=== PATIENT | female | born 1990 | race Caucasian/White ===

== ENCOUNTER → 2017-04-07 | Outpatient (CLI) | payer BC | END | disposition home or self-care (01) | LOC: C.PAPS 10:13 | PROVIDERS: ATTEND Physician Assistant | DX: Z01.419 Encounter for gynecological examination (general) (routine) without abnormal findings (principal); R87.610 Atypical squamous cells of undetermined significance on cytologic smear of cervix (ASC-US); Z11.51 Encounter for screening for human papillomavirus (HPV) ==

== ENCOUNTER → 2017-04-07 | Outpatient (CLI) | payer BC ==
[2017-04-07 14:59] LABS: PREG INTERNAL NEGATIVE QC NEG CLEAR BACKGROUND; PREG INTERNAL POSITIVE QC POS CONTROL LINE
[2017-04-10 00:34] LABS: CHLAMYDIA TRACH RNA*** NOT DETECTED (NOT DETECTED); GC (NEIS GONORRHOEAE)RNA** NOT DETECTED (NOT DETECTED)
== END | disposition home or self-care (01) ==
LOC: C.LAB1850 13:06
PROVIDERS: ATTEND Physician Assistant
DX: Z01.419 Encounter for gynecological examination (general) (routine) without abnormal findings (principal); N91.2 Amenorrhea, unspecified

== ENCOUNTER 2019-12-29 07:45 | Inpatient (IN) ==
[2019-12-29] MEDS ORDERED: OXYTOCIN 30 UNITS/500 ML BAG IV PRN ×3 (08:31→18:32)
[2019-12-29] MEDS: LACTATED RINGER'S 1,000 ML IV PRN ×2 (08:45→13:11)
--- NOTE | 2019-12-29 08:45 | History & Physical Report ---
Date of Service December 29, 2019 Assessment & Plan (1) Encounter for induction of labor: (2) Diet controlled gestational diabetes mellitus (GDM), antepartum: (3) Obesity affecting , antepartum: admit, labs, iv, plan pitocin induction. fhts categ 1. pt agreeable. bsg now and then q2hr in active labor. Admission and Anticipated Discharge Date Admission Date: December 29, 2019 History of Present Illness Chief Complaint: planned induction Primary Care Provider: Abigail العلي, 29yo at 40+wks ega presents to L&D for planned induction. Has h/o GDM diet controlled, although last ac% was >75% but insulin was not started. She is sending glucoses to endo and they made decision to not add insulin based on these values. Denies rom, vb. +FM. No ctx. PNC c/b 1. 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 Diet controlled gestational diabetes mellitus (GDM), antepartum Obesity affecting , antepartum Allergies Allergy/AdvReac Type Severity Reaction Status Date / Time cefaclor [From [facility]] Allergy rash Verified 12/28/19 13:30 Home Medications Home Medications Medication Instructions Recorded Confirmed Type prenat.vits,aurelia,cgv-illr-czaqd PO 07/14/19 12/28/19 History acetone (urine) test #50 ea 08/13/19 12/28/19 Rx blood sugar diagnostic #120 ea 08/13/19 12/28/19 Rx lancets 33 gauge #120 ea 08/13/19 12/28/19 Rx Patient History Family History (Updated 07/01/19 @ 10:17 by Dorcas Younger) Father Diabetes Hypertension Dyslipidemia Mother Hypertension Dyslipidemia Liver disease Breast cancer Sister Thyroid disease Social History (Updated 07/01/19 @ 10:19 by Dorcas Younger) Preferred Language: Macedonian Communication Ability: Effective Beliefs That Will Affect Care: None marital status: Single marital status details: Sheldon Medrano (24) [phone] Current Living Situation: Significant Other Current Living Situation Comment: lives with FOB, 4 dogs, turtles current occupational status: employed 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 @ [employer] Other Information That Helps Us Care for You: No Feels Safe at Home: Yes Safety Concerns: Feels Safe At This Time Smoking Status: Former smoker Hx Alcohol Use: No Hx Substance Use: No Review of Systems as per Subjective / HPI no change in stools no dysuria and no abnormal vaginal bleeding Physical Exam Constitutional: WD/WN, vitals as above Respiratory: normal respiratory effort, lungs clear to auscultation Cardiovascular: Rate/Rhythm: regular rate and regular rhythm Gastrointestinal (Abdomen): Percussion/Palpation: abdomen soft (gravid); abdomen nontender Musculoskeletal: no edema. Neurologic: grossly normal Psychiatric: A+Ox3, euthymic affect Genitourinary: OB Exam Abdomen: + estimated weight (8-9#) Manual OB Exam: + cervical dilation (3), + cervical effacement 80% and + station -2 OB Exam Monitor Tracing: + external FHT monitor used (150 mod variability, reactive), + external uterine monitor used (no ctx), + category I and + normal FHT variability Results & Data ([facility]) Vital Signs (Past 12 Hours) Vital Signs Temp Pulse Resp BP 12/29/19 07:55 98.8 F 20 12/29/19 07:54 71 139/83 Coding Level of Care Code None Diagnoses Encounter for induction of labor Z34.90 Diet controlled gestational diabetes mellitus (GDM), antepartum O24.410 Obesity affecting , antepartum O99.210
[2019-12-29 08:54] LABS: Hematocrit (blood only) 41.2 % (37-47); Hemoglobin 13.5 g/dL (12.0-16.0); Mean Corpuscular Hemoglobin 28.7 pg (25-34); Mean Corpuscular Volume 87.5 fL (80-100); Mean Platelet Volume 12.6 fL (7.4-10.4); Platelet Count 182 K/uL (130-400); RDW Coefficient of Variation 14.6 % (11.5-14.5); RDW Standard Deviation 46.5 fL (36.4-46.3); Red Blood Count 4.71 M/uL (4.2-5.4)
[2019-12-29 09:02] LABS: Mean Corpuscular Hgb Conc 32.8 g/dL (32-36)
[2019-12-29] MEDS ORDERED: fentaNYL 2MCG/ML ROPIV 1.25MG/ML 100 ML BAG EPI ONE (12:50)
[2019-12-29] MEDS ORDERED: BUPIVACAINE 0.25% 30 ML VIAL ONE (12:50)
[2019-12-29] MEDS ORDERED: fentaNYL citrate 100 MCG/2 ML VIAL ONE (12:50)
[2019-12-29] MEDS ORDERED: ePHEDrine sulfate 50 MG/ML AMP ONE (12:50)
[2019-12-29] MEDS ORDERED: NALOXONE HCL 1 MG in SODIUM CHLORIDE 0.9% 1000ML 1,000 ML IV PRN (13:05)
[2019-12-29] MEDS ORDERED: DiphenhydrAMINE HCL 50 MG/ML VIAL IV PRN (13:05)
[2019-12-29] MEDS ORDERED: NALBUPHINE HCL INJ 10 MG/ML AMP IV PRN (13:05)
[2019-12-29] MEDS ORDERED: ePHEDrine sulfate 50 MG/ML AMP IV PRN (13:05)
[2019-12-29] MEDS ORDERED: ONDANSETRON INJ 2 MG/ML 2 ML VIAL IV PRN (13:05)
[2019-12-29] MEDS ORDERED: NALOXONE HCL 0.4 MG/1 ML VIAL/CARP IV PRN (13:05)
[2019-12-29] MEDS ORDERED: fentaNYL 2MCG/ML ROPIV 1.25MG/ML 100 ML BAG EPI PRN (13:05)
--- NOTE | 2019-12-29 13:12 | Anesthesiology Consultation ---
Date of Service December 29, 2019 Assessment & Plan Chart Review Chart Review: Patient NOT seen in Pre Admission Testing and Acceptable Risk for Labor Epidural Consults Requested none ASA ASA2 Proposed Anesthesia Anesthesia Type: Labor Epidural and CSE Risk / Benefits Reviewed With: PT / POA / Parent / Guardian, Accepts Plan and Informed Consent Obtained History Height/Weight Height: 5 ft 8 in Weight: 113.398 kg Allergies Allergy/AdvReac Type Severity Reaction Status Date / Time cefaclor [From [facility]] Allergy Mild rash Verified 12/29/19 09:14 Medications Home Medications Medication Instructions Recorded Confirmed Last Taken vit-iron fum-folic ac 1 tab PO DAILY 12/29/19 12/29/19 12/29/19 06:00 [ Vitamin] Active Medications Generic Name Dose Route Start Last Admin Trade Name Freq PRN Reason Stop Dose Admin Lactated Ringer's 1,000 mls @ 125 mls/hr 12/29/19 08:31 12/29/19 12:40 Lr IV 12/31/19 08:30 999 mls/hr .Q8H PRN Infusion L&D Protocol Protocol Oxytocin 30 units in 500 mls @ 5 mls/hr 12/29/19 08:31 12/29/19 10:45 Pitocin IV 12/31/19 08:30 0.3 units/hr .Q24H PRN 5 mls/hr Labor Induction/Augmentation Titration Protocol 0.3 UNITS/HR NPO Date Last Intake of Fluids: 12/29/19 Time Last Intake of Fluids: 12:00 Date Last Intake of Solids: 12/29/19 Time Last Intake of Solids: 06:30 Past Medical History Medical History ASCUS of cervix with negative high risk HPV Encounter for anatomic survey History of hysterosalpingogram LGSIL on Pap smear of cervix PCOS (polycystic ovarian syndrome) Varicella vaccination Exercise / Class Metabolic Activity II 4-5 Yardwork/Stairs/Walk up hill Past Family History Family History Father Diabetes Hypertension Dyslipidemia Mother Hypertension Dyslipidemia Liver disease Breast cancer Sister Thyroid disease Past Surgical History Surgical History H/O sinus surgery History of cholecystectomy History of tonsillectomy and adenoidectomy [place] teeth removed Past Anesthesia History No Hx of Anesthesia Complications and No Family Hx of Anesthesia Complications History of PONV No Hx of PONV and No Hx of Motion Sickness Social History Smoking Status: Former smoker Hx Alcohol Use: No Hx Substance Use: No substance use type: does not use Review of Systems no chest pain or sob Physical Exam Vital Signs Last Vital Signs Temp 37.1 C 12/29/19 11:14 Pulse 67 12/29/19 13:04 Resp 18 12/29/19 11:14 BP 145/87 H 12/29/19 12:11 Pulse Ox 99 12/29/19 13:04 ENMT Mouth: no TMJ abnormality Thyromental Distance: > or= 3.5 Finger Breadths Mallampati Class: II Neck normal visual inspection Respiratory normal respiratory effort Auscultation: lungs clear to auscultation bilaterally Cardiovascular Rate/Rhythm: regular rate and regular rhythm Musculoskeletal Spine: normal cervical ROM Neurologic moves all extremities Psychiatric Orientation: alert and oriented x 3 Testing Laboratory Results 12/29/19 08:42 12/29/19 09:08 POC Glucose 79
--- NOTE | 2019-12-29 14:15 | Labor Progress Brief Note ---
Date of Service December 29, 2019 Subjective comfortable with epidural Assessment & Plan (1) Diet controlled gestational diabetes mellitus (GDM), antepartum: (2) Encounter for induction of labor: c/w pitocin to keep ctx regular and palpably mod to strong. reeval cx in about 2hr. fhts categ 1. Admission and Anticipated Discharge Date Admission Date: December 29, 2019 Physical Exam Constitutional: WD/WN, vitals as above Neurologic: grossly normal Psychiatric: A+Ox3, euthymic affect Genitourinary: Manual OB Exam: + cervical dilation 6 cm, + cervical effacement 100% and + station -1 OB Exam Monitor Tracing: + external FHT monitor used (120 mod variability ), + external uterine monitor used (q2), + category I and + normal FHT variability Results & Data ([facility]) Vital Signs (Past 12 Hours) Vital Signs Temp Pulse Resp BP Pulse Ox 12/29/19 14:09 66 121/67 99 12/29/19 14:04 63 114/60 97 12/29/19 14:01 62 119/58 L 12/29/19 13:59 74 98 12/29/19 13:54 62 108/50 L 97 12/29/19 13:50 68 116/56 L 12/29/19 13:49 70 97 12/29/19 13:46 67 109/55 L 12/29/19 13:44 71 96 12/29/19 13:39 70 121/58 L 97 12/29/19 13:36 75 113/61 12/29/19 13:34 72 115/57 L 97 12/29/19 13:33 75 118/72 12/29/19 13:30 95 H 121/60 12/29/19 13:29 86 98 12/29/19 13:28 79 112/56 L 12/29/19 13:27 75 112/57 L 12/29/19 13:25 96 H 129/79 12/29/19 13:24 96 H 99 12/29/19 13:23 76 127/78 12/29/19 13:21 71 138/84 12/29/19 13:19 72 98 12/29/19 13:14 81 99 12/29/19 13:09 84 99 12/29/19 13:04 67 99 12/29/19 12:59 69 100 12/29/19 12:54 67 99 06/24/20 12:49 67 99 12/29/19 12:11 73 145/87 H 12/29/19 11:14 98.8 F 76 18 130/83 12/29/19 10:07 75 18 134/87 12/29/19 08:56 73 133/75 12/29/19 07:55 98.8 F 20 12/29/19 07:54 71 139/83 Coding Level of Care Code None Diagnoses Diet controlled gestational diabetes mellitus (GDM), antepartum O24.410 Encounter for induction of labor Z34.90
--- NOTE | 2019-12-29 16:51 | Labor Progress Brief Note ---
Date of Service December 29, 2019 Subjective Reason For Note: Routine Evaluation feels pressure sometimes. Assessment & Plan (1) Diet controlled gestational diabetes mellitus (GDM), antepartum: (2) Encounter for induction of labor: will start 2nd stage, fhts categ 2 Admission and Anticipated Discharge Date Admission Date: December 29, 2019 Physical Exam Constitutional: WD/WN, vitals as above Psychiatric: A+Ox3, euthymic affect Genitourinary: Manual OB Exam: + cervical dilation 10 cm, + cervical effacement 100% and + station + 2 OB Exam Monitor Tracing: + external FHT monitor used (130 mod variability), + external uterine monitor used (q2), + category II, + normal FHT variability and + variable decelerations Results & Data ([facility]) Vital Signs (Past 12 Hours) Vital Signs Temp Pulse Resp BP Pulse Ox 12/29/19 16:44 67 118/68 99 12/29/19 16:39 65 98 12/29/19 16:34 66 99 12/29/19 16:29 65 100 12/29/19 16:28 67 125/63 12/29/19 16:24 63 99 12/29/19 16:20 18 12/29/19 16:19 62 97 12/29/19 16:14 63 98 12/29/19 16:13 68 113/59 L 12/29/19 16:09 79 97 12/29/19 16:04 68 99 12/29/19 16:00 18 12/29/19 15:59 68 98 12/29/19 15:58 63 121/60 12/29/19 15:54 80 98 12/29/19 15:49 62 99 12/29/19 15:44 71 99 12/29/19 15:42 70 130/63 12/29/19 15:39 75 99 12/29/19 15:34 67 98 12/29/19 15:30 18 12/29/19 15:29 61 99 12/29/19 15:28 68 131/63 12/29/19 15:24 64 99 12/29/19 15:19 68 99 12/29/19 15:14 70 123/60 99 12/29/19 15:10 98.2 F 18 12/29/19 15:09 65 98 12/29/19 15:04 68 99 12/29/19 14:59 67 18 100 06/24/20 14:58 69 141/70 H 12/29/19 14:54 64 98 12/29/19 14:49 61 99 12/29/19 14:44 64 18 100 12/29/19 14:40 69 134/67 12/29/19 14:39 67 99 12/29/19 14:35 95 H 94 12/29/19 14:34 65 105/59 L 96 12/29/19 14:31 61 20 111/68 12/29/19 14:29 60 97 12/29/19 14:25 60 112/63 12/29/19 14:24 60 96 12/29/19 14:19 67 112/64 97 12/29/19 14:16 69 18 115/69 12/29/19 14:14 69 98 12/29/19 14:09 66 121/67 99 12/29/19 14:04 63 114/60 97 12/29/19 14:01 62 18 119/58 L 12/29/19 13:59 74 98 12/29/19 13:54 62 108/50 L 97 12/29/19 13:50 68 116/56 L 12/29/19 13:49 70 97 12/29/19 13:46 67 109/55 L 12/29/19 13:44 98.8 F 71 18 96 12/29/19 13:39 70 18 121/58 L 97 12/29/19 13:36 75 113/61 12/29/19 13:34 72 18 115/57 L 97 12/29/19 13:33 75 118/72 12/29/19 13:30 95 H 121/60 12/29/19 13:29 86 98 12/29/19 13:28 79 112/56 L 12/29/19 13:27 75 112/57 L 12/29/19 13:25 96 H 129/79 12/29/19 13:24 96 H 99 12/29/19 13:23 76 127/78 12/29/19 13:21 71 138/84 12/29/19 13:19 72 98 12/29/19 13:14 81 99 12/29/19 13:09 84 99 12/29/19 13:04 67 99 12/29/19 12:59 69 100 12/29/19 12:54 67 99 12/29/19 12:49 67 99 12/29/19 12:11 73 145/87 H 12/29/19 11:14 98.8 F 76 18 130/83 12/29/19 10:07 75 18 134/87 12/29/19 08:56 73 133/75 12/29/19 07:55 98.8 F 20 12/29/19 07:54 71 139/83 Coding Level of Care Code None Diagnoses Diet controlled gestational diabetes mellitus (GDM), antepartum O24.410 Encounter for induction of labor Z34.90
[2019-12-29] MEDS ORDERED: HYDROCORTISONE ACETATE 25 MG SUPP PR PRN (18:32)
[2019-12-29] MEDS ORDERED: BENZOCAINE 20% AER SPR 82.5 GM CAN EXT PRN (18:32)
[2019-12-29] MEDS ORDERED: ACETAMINOPHEN 325 MG TAB PO PRN (18:32)
[2019-12-29] MEDS ORDERED: SUPERCREAM 0.870% 15 GM JAR EXT PRN (18:32)
[2019-12-29] MEDS ORDERED: DIPHTHERIA/TETANUS/PERTUSSIS 0.5 ML SYR/VIAL IM ONE (18:32)
[2019-12-29] MEDS ORDERED: OXYCODONE/ACETAMINOPHEN 5mg/325mg TAB PO PRN (18:32)
--- NOTE | 2019-12-29 18:32 | Delivery Summary ---
Vaginal Delivery Summary Date of Service December 29, 2019 The patient dilated to complete and pushed to deliver a viable male Apgars 8 and 8 via over small 2nd degree perineal laceration from the LOP position. Meconium stained fluid noted, not previously noted. Mouth and nose bulb suctioned at perineum. Shoulders and body delivered with ease. was vigorous and crying at . Cord clamped and to maternal abdomen where the cord was then doubly clamped and cut. Placenta delivered spontaneously and intact, three-vessel cord. Hemostasis achieved with dilute pitocin and uterine massage. Cervix and sulci intact. Laceration repaired in usual fashion with 3- 0 vicryl. EBL 300 cc. Mother and baby stable recovery. [facility] Vaginal Delivery Charge Vaginal Delivery Codes: 48738 global code for the antepartum, delivery, and post-
[2019-12-29] MEDS ORDERED: OXYTOCIN 20 UNITS in LACTATED RINGER'S 1,000 ML IV SCH (19:00)
--- NOTE | 2019-12-29 19:27 | Anesthesia Procedure Note ---
Date of Service December 29, 2019 Anesthesia Post Epidural Note Vital Signs Vital Signs: Temp Pulse Resp BP Pulse Ox 37.5 C 92 H 18 135/80 90 12/29/19 18:57 12/29/19 19:12 12/29/19 19:12 12/29/19 19:12 12/29/19 18:27 Pain Intensity Left Lower Abdomen: Pain Intensity: 0 Notes Mental Status: alert / awake / arousable and participated in evaluation Nausea / Vomiting: adequately controlled Pain: adequately controlled Airway Patency, RR, SpO2: stable & adequate BP & HR: stable & adequate Hydration State: stable & adequate Neuraxial Anesthesia: was administered and sensory block is resolving Anesthetic Complications: no major complications apparent and Pt Satisfied with anesthetic care Epidural: Removed without complications and With tip intact
[2019-12-29] MEDS: DOCUSATE SODIUM 100 MG CAP PO SCH (20:27)
[2019-12-30] MEDS: IBUPROFEN 600 MG TAB PO PRN ×2 (04:16→21:00)
--- NOTE | 2019-12-30 07:09 | Obstetrical Progress Note ---
Date of Service December 30, 2019 Assessment & Plan (1) Encounter for care and examination after delivery: 29 yo G1Po PPD1 s/p after induction at 40 weeks. 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 Salas during the history and exam. I discussed the case with the resident and agree with the findings and plan as documented in the note. Any exceptions or clarifications are listed here: Doing well pp. She was tired so had nursery give baby bottle. She will cont to try to breastfeed. Eating, voiding well. No bleeding issues. VSS. Abd soft FF 2 down. NT, Ext nt calves. Will cont routine pp care. Documented By: Malia Miguel MD, FACOG Subjective no complaints this morning. pain well controlled. Review of Systems Constitutional: no fever, no chills and no fatigue Respiratory: no cough and no dyspnea Cardiovascular: no chest pain, no syncope, no edema and no calf pain Gastrointestinal: no abdominal pain, no nausea, no vomiting, no cramping, no constipation and no diarrhea/loose stools Genitourinary: no dysuria and no difficulty urinating Neurologic: no headache(s) Physical Exam Constitutional: well developed and well nourished Respiratory: normal respiratory effort; no respiratory distress, no labored breathing and no cough Auscultation: no crackles, no rales, no rhonchi and no wheezes Cardiovascular: Rate/Rhythm: regular rate and regular rhythm Heart Sounds: no gallop, no murmur and no cardiac rub Extremities: no pedal edema Gastrointestinal (Abdomen): Inspection/Auscultation: normal bowel sounds; abdomen not distended Percussion/Palpation: abdomen soft; no guarding Musculoskeletal: no tenderness to palpation of calves bilaterally Genitourinary: palpation of uterine fundus impaired by body habitus Results & Data ([facility]) Vital Signs (Past 12 Hours) Vital Signs Temp Pulse Pulse Resp BP BP Pulse Ox 12/30/19 04:05 36.8 C 83 16 122/81 97 12/30/19 00:30 36.6 C 69 18 125/86 97 12/29/19 21:45 36.9 C 86 17 129/85 96 12/29/19 20:57 37.1 C 18 12/29/19 20:27 96 H 126/71 12/29/19 20:12 81 126/68 12/29/19 19:57 82 18 133/67 12/29/19 19:42 81 136/80 12/29/19 19:27 94 H 20 135/89 12/29/19 19:12 92 H 18 135/80 Laboratory Results WBC 15.00 K/uL (4.8-10.8) H 12/29/19 08:42 RBC 4.71 M/uL (4.2-5.4) 12/29/19 08:42 Hgb 13.5 g/dL (12.0-16.0) 12/29/19 08:42 Hct 41.2 % (37-47) 12/29/19 08:42 MCV 87.5 fL (80-100) 12/29/19 08:42 MCH 28.7 pg (25-34) 12/29/19 08:42 MCHC 32.8 g/dL (32-36) 12/29/19 08:42 RDW Std Deviation 46.5 fL (36.4-46.3) H 12/29/19 08:42 RDW Coeff of Rigoberto 14.6 % (11.5-14.5) H 12/29/19 08:42 Plt Count 182 K/uL (130-400) 12/29/19 08:42 MPV 12.6 fL (7.4-10.4) H 12/29/19 08:42 POC Glucose 82 mg/dl (70-99) 12/29/19 17:30 Resident Activity Tracking Resident Involvement: Resident Care Provided Care Provided: OB Delivery
[2019-12-30] MEDS ORDERED: CALCIUM CARBONATE 500 MG CHEWABLE TAB PO PRN (09:16)
[2019-12-30] MEDS: DOCUSATE SODIUM 100 MG CAP PO SCH ×2 (10:04→21:08)
[2019-12-31] MEDS: IBUPROFEN 600 MG TAB PO PRN (05:49)
--- NOTE | 2019-12-31 07:30 | Obstetrical Progress Note ---
Date of Service December 31, 2019 Assessment & Plan (1) Encounter for care and examination after delivery: 29 yo G1Po PPD2 s/p after induction at 40 weeks. 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 Stable for discharge Subjective no complaints this am. doing well with eating, urination, walking. Review of Systems Constitutional: + fatigue; no fever and no chills Respiratory: no cough and no dyspnea Cardiovascular: + edema; no chest pain, no syncope and no calf pain Gastrointestinal: + cramping; no abdominal pain, no nausea, no vomiting, no constipation and no diarrhea/loose stools Genitourinary: no dysuria and no difficulty urinating Neurologic: no headache(s) Physical Exam Constitutional: well developed and well nourished Respiratory: normal respiratory effort; no respiratory distress, no labored breathing and no cough Auscultation: no crackles, no rales, no rhonchi and no wheezes Cardiovascular: Rate/Rhythm: regular rate and regular rhythm Heart Sounds: no gallop, no murmur and no cardiac rub Extremities: + pedal edema Gastrointestinal (Abdomen): Inspection/Auscultation: normal bowel sounds; abdomen not distended Percussion/Palpation: abdomen soft; no guarding Musculoskeletal: no tenderness to palpation of calves bilaterally Genitourinary: Uterus small and firm, palpable in midline at level of umbilicus, some tenderness to palpation. Results & Data ([facility]) Vital Signs (Past 12 Hours) Vital Signs Temp Pulse Resp BP Pulse Ox 12/31/19 00:15 36.7 C 82 18 127/83 100 12/30/19 20:45 36.8 C 72 20 112/76 99 Laboratory Results WBC 15.00 K/uL (4.8-10.8) H 12/29/19 08:42 RBC 4.71 M/uL (4.2-5.4) 12/29/19 08:42 Hgb 13.5 g/dL (12.0-16.0) 12/29/19 08:42 Hct 41.2 % (37-47) 12/29/19 08:42 MCV 87.5 fL (80-100) 12/29/19 08:42 MCH 28.7 pg (25-34) 12/29/19 08:42 MCHC 32.8 g/dL (32-36) 12/29/19 08:42 RDW Std Deviation 46.5 fL (36.4-46.3) H 12/29/19 08:42 RDW Coeff of Rigoberto 14.6 % (11.5-14.5) H 12/29/19 08:42 Plt Count 182 K/uL (130-400) 12/29/19 08:42 MPV 12.6 fL (7.4-10.4) H 12/29/19 08:42 POC Glucose 82 mg/dl (70-99) 12/29/19 17:30 Resident Activity Tracking Resident Involvement: Resident Care Provided Care Provided: OB Delivery
[2019-12-31] MEDS: DOCUSATE SODIUM 100 MG CAP PO SCH (08:28)
== END 2019-12-31 13:37 | disposition home or self-care (01) | DRG 807 ==
LOC: 4S1 07:45 → 4S2 20:50

== ENCOUNTER 2022-08-27 08:50 | Inpatient (IN) ==
[2022-08-27] MEDS ORDERED: OXYTOCIN 30 UNITS/500 ML BAG IV PRN (09:01)
[2022-08-27] MEDS ORDERED: LIDOCAINE 1% LOCAL 20 ML VIAL INFIL PRN (09:01)
[2022-08-27] MEDS ORDERED: LACTATED RINGER'S 1,000 ML IV PRN (09:01)
--- NOTE | 2022-08-27 09:03 | History & Physical Report ---
Date of Service August 27, 2022 Assessment & Plan (1) Diet controlled gestational diabetes mellitus (GDM), antepartum: (2) Normal labor: Plan Patient involuntarily pushing. See delivery note. History of Present Illness Chief Complaint: rom and labor Primary Care Provider: Abigail العلي DO Patient is a 32yowf with iup at 39 1/7 weeks who presents to labor and delivery with rom and contractions. Very uncomfortable. Started leaking clear fluid at 5 and contractions started at 5:30. complicated by GDm. La st us efw 81%. 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 Declines cf/sma/cfdna--mln declined afp Allergies Allergy/AdvReac Type Severity Reaction Status Date / Time cefaclor [From [facility]] Allergy Mild rash Verified 08/23/22 10:15 Home Medications Medication Instructions Recorded Confirmed Type vitamins-iron fumarate 27 1 tab PO DAILY 12/29/19 08/23/22 History mg iron-folic acid 0.8 mg tablet ( Vitamin) acetone (urine) test (Ketone Urine #50 ea 03/01/22 08/23/22 Rx Test strips) blood sugar diagnostic (OneTouch #150 ea 03/01/22 08/23/22 Rx Verio test strips) blood-glucose meter (OneTouch #1 ea 03/01/22 08/23/22 Rx Verio Flex Meter) lancets 33 gauge (OneTouch Delica #150 ea 03/01/22 08/23/22 Rx Plus Lancet) Patient History Medical History Abnormal Pap smear of cervix Amenorrhea ASCUS of cervix with negative high risk HPV Chlamydial infection Encounter for anatomic survey Encounter for routine pelvic examination Encounter for screening for infections with predominantly sexual mode of transmission History of hysterosalpingogram History of PCOS LGSIL on Pap smear of cervix PCOS (polycystic ovarian syndrome) Polycystic ovarian syndrome Secondary amenorrhea Varicella vaccination Surgical History H/O sinus surgery History of cholecystectomy History of tonsillectomy and adenoidectomy [place] teeth removed Family History Father Diabetes Hypertension Dyslipidemia Mother Hypertension Dyslipidemia Liver disease Breast cancer Sister Thyroid disease Denies family history of Ovarian cancer Prostate cancer Colorectal cancer Social History Smoking Status: Never smoker Second Hand Exposure: No; Hx Alcohol Use: No Hx Substance Use: No Preferred Language: Latvian Communication Ability: Effective Visual Impairment: No Limitations Hearing Ability: Normal Beliefs That Will Affect Care: None marital status: Single marital status details: Sheldon Medrano (27) [phone] Current Living Situation: Significant Other Current Living Situation Comment: lives with FOB, son, 5 dogs, 3 turtles current occupational status: employed 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 Date GA wks Lbr Lgth wt Sex Type del [place] Place Del Prov ? Comment 12/29/19 40 7lbs 15.7oz M E pidural [facility] Dr Miguel No GDM Physical Exam Constitutional: WD/WN, vitals as above (uncomfortable) Gastrointestinal (Abdomen): obese , gravid Psychiatric: A+Ox3, euthymic affect Genitourinary: cx--ant lip toco--q2min efm--120s with mod variability, minimal strip, difficult tracing. Results & Data ([facility]) Vital Signs (Past 12 Hours) Vital Signs Pulse BP 08/27/22 08:56 81 120/72 Coding Level of Care Code None Diagnoses Diet controlled gestational diabetes mellitus (GDM), antepartum O24.410 Normal labor O80; Z37.9
[2022-08-27] MEDS ORDERED: IBUPROFEN 600 MG TAB PO PRN (09:26)
[2022-08-27] MEDS ORDERED: HYDROCORTISONE ACETATE 25 MG SUPP PR PRN (09:26)
[2022-08-27] MEDS ORDERED: oxyCODONE/ACETAMINOPHEN 5mg/325mg TAB PO PRN (09:26)
[2022-08-27] MEDS ORDERED: ACETAMINOPHEN 325 MG TAB PO PRN (09:26)
[2022-08-27] MEDS ORDERED: BENZOCAINE 20% AER SPR 82.5 GM CAN EXT PRN (09:26)
[2022-08-27] MEDS ORDERED: miSOPROStoL 200 MCG TAB PR ONE (09:26)
[2022-08-27] MEDS ORDERED: bisacodyL 10 MG SUPP PR PRN (09:26)
[2022-08-27] MEDS ORDERED: DIPHTHERIA/TETANUS/PERTUSSIS 0.5mL SYR/VIAL (Age 7+yrs) IM ONE (09:26)
[2022-08-27] MEDS ORDERED: OXYTOCIN 10 UNITS/ML 10ML VIAL IM ONE (09:26)
--- NOTE | 2022-08-27 09:35 | Delivery Summary ---
Vaginal Delivery Summary Date of Service August 27, [address] [facility] Pre-operative Diagnosis: at 39 week srom with active labor gdm Post-operative Diagnosis: same Procedure: EBL: 400cc Anesthesia: none Procedure: Patient presented to labor and delivery in active labor. She was involuntarily pushing. Fetus +1-2 station. The patient pushed for 1-2 contractions to deliver a viable female infant in piter position. The anterior shoulder was immediately delivered and a pop was heard, but no real shoulder dystocia encountered. Just placed baby in Aravind. The body delivered easily. The nose and mouth were bulb suctioned. The baby was placed on the maternal abdomen. The baby was vigorous. Cord was clamped and cut at 1.5 minutes of life. Cord blood and segment obtained. Placenta delivered spontaneous, intact with a three vessel cord. Cervix/sulci/rectum/perineum were intact. Hemostasis obtained with IM pitocin, rectal cytotec and fundal massage. Patient was unable to have IV access obtained prior to delivery. Apgars were 8/9. Mother and baby doing well at the end of the delivery. [facility] Vaginal Delivery Charge Delivery Type Details: [facility]
[2022-08-27 10:48] LABS: Hematocrit (blood only) 42.2 % (37.0-47.0); Mean Corpuscular Hemoglobin 28.9 pg (25.0-34.0); Mean Corpuscular Hgb Conc 33.2 g/dL (32.0-36.0); Mean Platelet Volume 12.9 fL (9.4-12.4); Platelet Count 183 K/uL (130-400); RDW Coefficient of Variation 14.4 % (11.5-14.5); RDW Standard Deviation 45.2 fL (36.4-46.3); Red Blood Count 4.85 M/uL (4.20-5.40); White Blood Count 23.85 K/ul (4.8-10.8)
[2022-08-27] MEDS ORDERED: miSOPROStoL 200 MCG TAB ONE (13:14)
[2022-08-27] MEDS ORDERED: OXYTOCIN 10 UNITS/ML VIAL ONE (13:15)
[2022-08-27] MEDS: DOCUSATE SODIUM 100 MG CAP PO SCH (20:16)
--- NOTE | 2022-08-28 05:40 | Obstetrical Progress Note ---
Date of Service August 28, 2022 Assessment & Plan (1) care following vaginal delivery: (2) Diet controlled gestational diabetes mellitus (GDM), antepartum: Plan - Overall, feeling well and eating well today - feeding going well without concern - Urinating and passing gas appropriately - Ambulating well in room - Pain controlled w/ Ibuprofen - Hgb 14.0 on 08/27 - Vitals stable and wnl - Routine PP care progressing well - Anticipate discharge @ 24-48 hours PP - Recommending f/u outpatient in 6 weeks Admission and Anticipated Discharge Date Admission Date: August 27, 2022 Supervising Physician Co-Signing Physician Notes Resident Physician Supervision Note: I interviewed and examined the patient. Discussed with Dr. Milian and agree with findings and plan as documented in the note. Any exceptions or clarifications are listed here: Patient doing well. Desires d/c at 24 hours. Instructions given. Documented By: Mary Light MD, FACOG Subjective Patient is a 32F who is PPD #1 following delivery at 39 1/7. She reports feeling well overall this morning. - Ambulation - well throughout room - Voiding/Syed - independent voids, no dysuria or pressure - Gas/Stool - passing gas, no bowel movement - Diet - regular, no nausea or emesis - Lochia - diminishing, moderate amount - Feeding Type - breast/bottle feeding - Pain Level - 0/10, controlled with Ibuprofen Review of Systems - Denies fever, chills, sweats - Denies shortness of breath, difficulty breathing, chest pain, palpitations, chest pressure. - Denies breast pain. - Denies dysuria. - Denies headache or changes in vision. Physical Exam Physical Exam: General: Alert, oriented. No acute distress. Cardiac: RRR, normal S1/S2, no murmurs/rubs/gallops. Respiratory: Non-labored, CTAB, no wheezes/rales/rhonchi. Symmetric chest rise. Abdomen: Soft, nontender, nondistended. Bowel sounds present. Uterus: Uterine fundus firm, palpable 3 cm below umbilicus. Lower Extremities: No lower extremity edema or swelling. No deep calf pain. Ej's negative bilaterally. Results & Data ([facility]) Vital Signs (Past 12 Hours) Vital Signs Temp Pulse Resp BP Pulse Ox O2 Del Method 08/28/22 03:40 36.6 C 80 18 114/74 97 Room Air 08/27/22 23:50 36.6 C 97 H 18 129/81 100 Room Air 08/27/22 19:40 36.6 C 96 H 18 126/82 98 Room Air Resident Activity Tracking Resident Involvement: Resident Care Provided Care Provided: OB Delivery
[2022-08-28 06:59] LABS: Hematocrit (blood only) 38.1 % (37.0-47.0); Hemoglobin 12.7 g/dl (12.0-16.0); Mean Corpuscular Hemoglobin 28.9 pg (25.0-34.0); Mean Corpuscular Hgb Conc 33.3 g/dL (32.0-36.0); Mean Corpuscular Volume 86.8 fL (80.0-100.0); Mean Platelet Volume 12.7 fL (9.4-12.4); Platelet Count 160 K/uL (130-400); RDW Coefficient of Variation 14.6 % (11.5-14.5); RDW Standard Deviation 46.1 fL (36.4-46.3); Red Blood Count 4.39 M/uL (4.20-5.40); White Blood Count 18.24 K/ul (4.8-10.8)
[2022-08-28] MEDS ORDERED: PRENATAL VITAMIN 1 TAB PO SCH (08:00)
[2022-08-28] MEDS: DOCUSATE SODIUM 100 MG CAP PO SCH (08:22)
[2022-08-28] MEDS ORDERED: bisacodyL 5 MG TABEC PO SCH (20:00)
== END 2022-08-28 13:40 | disposition home or self-care (01) | DRG 807 ==
LOC: OPB 08:50 → 4S1 08:54 → 4E2 12:20

== ENCOUNTER 2024-09-19 04:09 | Inpatient (IN) ==
[2024-09-19] MEDS ORDERED: ONDANSETRON INJ 2 MG/ML 2 ML VIAL IV PRN (04:49)
[2024-09-19] MEDS ORDERED: ROPIVACAINE 0.5% PF 5 MG/ML 20 ML VIAL EPI PRN (04:49)
[2024-09-19] MEDS ORDERED: fentANYL 2 MCG/ML BUPIVacaine 0.125%-NSS 100ML BAG EPI PRN (04:49)
[2024-09-19] MEDS ORDERED: SODIUM CHLORIDE 0.9% PF INJ 10 ML VIAL EPI PRN (04:49)
[2024-09-19] MEDS ORDERED: NALOXONE HCL 1 MG in SODIUM CHLORIDE 0.9% 1,000 ML IV PRN (04:49)
[2024-09-19] MEDS ORDERED: LIDOCAINE 2% MPF LOCAL 5 ML VIAL EPI PRN (04:49)
[2024-09-19] MEDS ORDERED: diphenhydrAMINE 50 MG/ML VIAL IV PRN (04:49)
[2024-09-19] MEDS ORDERED: NALBUPHINE HCL INJ 10 MG/ML AMP IV PRN (04:49)
[2024-09-19] MEDS ORDERED: ePHEDrine sulfate 50 MG/ML AMP IV PRN (04:49)
[2024-09-19] MEDS ORDERED: NALOXONE HCL 0.4 MG/1 ML VIAL/CARP IV PRN (04:49)
[2024-09-19] MEDS ORDERED: fentaNYL citrate PF 100 MCG/2 ML VIAL EPI PRN (04:49)
[2024-09-19] MEDS ORDERED: BUPIVACAINE 0.25% PF 30 ML VIAL EPI PRN (04:49)
[2024-09-19] MEDS ORDERED: LACTATED RINGER'S 1,000 ML IV PRN (04:51)
[2024-09-19] MEDS ORDERED: LIDOCAINE 1% LOCAL 20 ML VIAL INFIL PRN (04:51)
--- NOTE | 2024-09-19 04:51 | Anesthesiology Consultation ---
Date of Service September 19, 2024 Assessment & Plan ASA ASA3 Proposed Anesthesia Anesthesia Type: Labor Epidural Risk / Benefits Reviewed With: PT / POA / Parent / Guardian, Accepts Plan and Informed Consent Obtained History Height/Weight Height: 5 ft 8 in Weight: 127.006 kg Allergies Allergy/AdvReac Type Severity Reaction Status Date / Time cefaclor [From Ceclor] Allergy Mild rash Verified 09/19/24 04:42 Medications Home Medications Medication Instructions Recorded Confirmed Last Taken vitamins-iron fumarate 27 1 tab PO DAILY 12/29/19 09/14/24 09/19/24 mg iron-folic acid 0.8 mg tablet ( Vitamin) omeprazole PO 03/12/24 09/14/24 Unknown acetone (urine) test (Ketone Urine #50 ea 03/26/24 09/14/24 Unknown Test strips) blood sugar diagnostic (OneTouch #120 ea 03/26/24 09/14/24 Unknown Verio test strips) blood-glucose meter (OneTouch #1 ea 03/26/24 09/14/24 Unknown Verio Reflect Meter) lancets 33 gauge (OneTouch Delica #120 ea 03/26/24 09/14/24 Unknown Plus Lancet) insulin NPH isoph U-100 human 100 8 unit (0.08 mL) subcut .at bed 06/16/24 09/19/24 09/19/24 unit/mL (3 mL) subcutaneous pen time #15 mL (Novolin N FlexPen) pen needle, diabetic 32 gauge x #100 ea 06/16/24 09/14/24 Unknown 5/32" (BD Ultra-Fine Terri Pen Needle) Past Medical History Medical History Polycystic ovarian syndrome Secondary amenorrhea Chlamydial infection Abnormal Pap smear of cervix Varicella vaccination History of hysterosalpingogram ASCUS of cervix with negative high risk HPV LGSIL on Pap smear of cervix Exercise / Class Metabolic Activity II 4-5 Yardwork/Stairs/Walk up hill Past Family History Family History Father Diabetes Hypertension Dyslipidemia Mother Hypertension Dyslipidemia Liver disease Breast cancer Sister Thyroid disease Denies family history of Ovarian cancer Prostate cancer Colorectal cancer Past Surgical History Surgical History History of cholecystectomy [place] teeth removed H/O sinus surgery History of tonsillectomy and adenoidectomy Past Anesthesia History No Hx of Anesthesia Complications and No Family Hx of Anesthesia Complications History of PONV No Hx of PONV and No Hx of Motion Sickness Social History Smoking Status: Never smoker Do You Dip or Chew Tobacco: No Hx Alcohol Use: No Hx Substance Use: No substance use type: does not use Review of Systems denies fever/cough/ colds/ chest pain/ SOB/ CIPRIANO denies CIPRIANO Physical Exam Vital Signs Last Vital Signs Temp 36.8 C 09/19/24 04:29 Pulse 77 09/19/24 04:36 Resp 18 09/19/24 04:29 BP 129/66 09/19/24 04:36 ENMT Mouth: no TMJ abnormality and no dentition abnormality Thyromental Distance: > or= 3.5 Finger Breadths Mallampati Class: II Neck neck extension not limited Respiratory normal respiratory effort; no respiratory distress Auscultation: lungs clear to auscultation bilaterally Cardiovascular Rate/Rhythm: regular rate and regular rhythm Neurologic moves all extremities Psychiatric Orientation: alert and oriented x 3
[2024-09-19 05:28] LABS: Hematocrit (blood only) 39.4 % (37.0-47.0); Mean Corpuscular Hemoglobin 27.5 pg (25.0-34.0); Mean Corpuscular Volume 83.5 fL (80.0-100.0); Mean Platelet Volume 12.3 fL (9.4-12.4); Platelet Count 150 K/uL (130-400); RDW Standard Deviation 42.4 fL (36.4-46.3); Red Blood Count 4.72 M/uL (4.20-5.40); White Blood Count 14.33 K/ul (4.8-10.8)
[2024-09-19] MEDS: OXYTOCIN 30 UNITS/NSS 30 UNITS/500 ML BAG IV PRN ×2 (05:30→07:05)
--- NOTE | 2024-09-19 05:47 | History & Physical Report ---
Date of Service September 19, 2024 Assessment & Plan (1) Insulin controlled gestational diabetes mellitus (GDM) during : (2) Obesity affecting : Plan See delivery note Admission and Anticipated Discharge Date Admission Date: September 19, 2024 History of Present Illness Chief Complaint: ctx Primary Care Provider: Abigail العلي DO 34 yo at 39 4/7 wga presented w ctx. On arrival was 6.5cm and rapidly progressed to complete PNI: A2GDM BMI >40 Allergies Allergy/AdvReac Type Severity Reaction Status Date / Time cefaclor [From [facility]] Allergy Mild rash Verified 09/19/24 04:42 Home Medications Medication Instructions Recorded Confirmed Type vitamins-iron fumarate 27 1 tab PO DAILY 12/29/19 09/14/24 History mg iron-folic acid 0.8 mg tablet ( Vitamin) omeprazole PO 03/12/24 09/14/24 History acetone (urine) test (Ketone Urine #50 ea 03/26/24 09/14/24 Rx Test strips) blood sugar diagnostic (OneTouch #120 ea 03/26/24 09/14/24 Rx Verio test strips) blood-glucose meter (OneTouch #1 ea 03/26/24 09/14/24 Rx Verio Reflect Meter) lancets 33 gauge (OneTouch Delica #120 ea 03/26/24 09/14/24 Rx Plus Lancet) insulin NPH isoph U-100 human 100 8 unit (0.08 mL) subcut .at bed 06/16/24 09/19/24 Rx unit/mL (3 mL) subcutaneous pen time #15 mL (Novolin N FlexPen) pen needle, diabetic 32 gauge x #100 ea 06/16/24 09/14/24 Rx 5/32" (BD Ultra-Fine Terri Pen Needle) Patient History Medical History Polycystic ovarian syndrome Secondary amenorrhea Chlamydial infection Abnormal Pap smear of cervix Varicella vaccination History of hysterosalpingogram ASCUS of cervix with negative high risk HPV LGSIL on Pap smear of cervix Surgical History History of cholecystectomy [place] teeth removed H/O sinus surgery History of tonsillectomy and adenoidectomy Family History Father Diabetes Hypertension Dyslipidemia Mother Hypertension Dyslipidemia Liver disease Breast cancer Sister Thyroid disease Denies family history of Ovarian cancer Prostate cancer Colorectal cancer Social History (Updated 03/12/24 @ 08:58 by Naomi Dumont) Smoking Status: Never smoker Second Hand Exposure: No; Do You Dip or Chew Tobacco: No; Hx Alcohol Use: No Hx Substance Use: No Preferred Language: Turkmen Communication Ability: Effective Visual Impairment: No Limitations Hearing Ability: Normal [place] Gunner Required: No Beliefs That Will Affect Care: None marital status: Single marital status details: Nat Medrano (29) [phone] Current Living Situation: Spouse and Family Current Living Situation Comment: lives with nat, 2 children, dogs, turtles, fish current occupational status: employed 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
--- NOTE | 2024-09-19 05:50 | Delivery Summary ---
Vaginal Delivery Summary Date of Service September 19, 2024 Vaginal Delivery Summary [facility] PREOPERATIVE DIAGNOSIS: 1. Single intrauterine at 39 4/7 wga 2. Labor 3. A2GDM POSTOPERATIVE DIAGNOSIS: 1. Single intrauterine at 39 4/7 wga 2. Labor 3. A2GDM 4. Shoulder dystocia 5. Delivered PROCEDURE: 1. Normal spontaneous vaginal delivery. SURGEON: Quin Barragan MD ANESTHESIA: Epidural. QUANTITATIVE BLOOD LOSS: 50 mL FLUIDS: Continuous LR. URINE OUTPUT: None. COMPLICATIONS: None. CONDITION: Stable. INDICATIONS: 34 yo at 39 4/7 wga presented w/ ctx. She was 6-7cm on arrival and rapidly progressed to complete and desired to push FINDINGS: A viable male , weight pending with Apgars of 8 and 9 at 1 and 5 minutes respectively. SPECIMEN: Cord blood OPERATIVE REPORT: The patient progressed to 10 cm, 100% effaced and +2 station, pushed over intact perineum with anesthesia to deliver a viable male , weight and Apgars as above. Head of delivered in EILEEN position. Nuchal cord was reduced. Shoulders did not deliver easily with downward traction so shoulder dystocia was called. Aravind maneuver and suprapubic pressure was applied and anterior shoulder easily delivered. Remainder of body delivered easily. was delivered to maternal abdomen and nursing staff. Delayed cord clamping was performed for 60 seconds. Cord was clamped and cut. Cord blood was obtained. Placenta delivered spontaneously intact with 3-vessel cord. IV oxytocin and fundal massage were given for excellent hemostasis. Vagina, cervix, perineum, and placenta were inspected. No lacerations were noted. Sponge and needle counts correct x2. No sponges were left behind. Mother and stable in immediate period. [facility] Vaginal Delivery Charge Vaginal Delivery Codes: 57425 global code for the antepartum, delivery, and post- Delivery Type Details: [facility]
[2024-09-19] MEDS ORDERED: BENZOCAINE 20% SPRY 85 APPLN/85 GM CAN EXT PRN (06:45)
[2024-09-19] MEDS ORDERED: HYDROCORTISONE ACETATE 25 MG SUPP PR PRN (06:45)
[2024-09-19] MEDS ORDERED: ACETAMINOPHEN 325 MG TAB PO PRN (06:45)
[2024-09-19] MEDS ORDERED: bisacodyL 10 MG SUPP PR PRN (06:45)
[2024-09-19] MEDS: fentaNYL citrate PF 100 MCG/2 ML VIAL EPI STA (06:47)
[2024-09-19] MEDS: LIDOCAINE 2%/EPINEPHRINE 1:200,000 20 ML PF EPI STA (06:47)
[2024-09-19] MEDS: BUPIVACAINE 0.25% PF 30 ML VIAL EPI STA (06:47)
[2024-09-19] MEDS: BUPIVACAINE 0.25% PF 30 ML VIAL ONE (06:48)
[2024-09-19] MEDS: fentANYL 2 MCG/ML BUPIVacaine 0.125%-NSS 100ML BAG ONE (06:48)
[2024-09-19] MEDS: ePHEDrine sulfate 50 MG/ML AMP ONE (06:48)
[2024-09-19] MEDS: SODIUM CHLORIDE 0.9% PF INJ 10 ML VIAL EPI STA (06:48)
[2024-09-19] MEDS: fentaNYL citrate PF 100 MCG/2 ML VIAL ONE (06:48)
[2024-09-19] MEDS: LIDOCAINE 2%/EPINEPHRINE 1:200,000 20 ML PF ONE (06:49)
[2024-09-19] MEDS: SODIUM CHLORIDE 0.9% PF INJ 10 ML VIAL ONE (06:49)
[2024-09-19] MEDS: DOCUSATE SODIUM 100 MG CAP PO SCH (07:44)
[2024-09-19] MEDS: IBUPROFEN 600 MG TAB PO PRN (07:44)
[2024-09-19] MEDS: PRENATAL VITAMIN 1 TAB PO SCH (07:44)
[2024-09-19] MEDS: DIPHTHER/TETAN/PERTUS Vaccine (Tdap, Adol/Adult) 0.5mL IM ONE (22:55)
[2024-09-20 06:19] VITALS: RESP 16
--- NOTE | 2024-09-20 06:39 | Obstetrical Progress Note ---
Date of Service September 20, 2024 Assessment & Plan (1) Obesity affecting : (2) Insulin controlled gestational diabetes mellitus (GDM) during : Plan Plan: Both mom and baby doing well. Discharge today as per protocol. Admission and Anticipated Discharge Date Admission Date: September 19, 2024 Supervising Physician Co-Signing Physician Notes Resident Physician Supervision Note: I interviewed and examined the patient. Discussed with Dr. Gross and agree with findings and plan as documented in the note. Any exceptions or clarifications are listed here: PP1 s/p , doing well. Desires dc home today Documented By: Quin Barragan MD Subjective 1st PPD following at 39+4 week POG. No active complains Both mom and baby doing well. Pain: Mild, intermittent Lochia: Minimal Diet: Regular Ob diet Gas: Not aware of passing, but no abdominal distension Peeing: Normal, no bladder distension Ambulation: Normally Review of Systems Review of Systems: As per HPI Physical Exam Physical Exam: General: Alert and oriented. No acute distress. CVS: S1 S2+ No murmurs, regular rhythm. Respiratory: CTA bilaterally. No rhonchi, wheezes, or crackles. No increased work of breathing. Abdomen: Bowel sound +. Soft, nontender Uterus: Fundus firm and palpable few cm below the umbilicus. Lower extremities: No LE edema. No deep calf pain. Results & Data Vital Signs (Past 12 Hours) Vital Signs Temp Pulse Resp BP Pulse Ox O2 Del Method 09/20/24 03:25 36.5 C 74 16 108/61 97 Room Air 09/19/24 23:45 36.5 C 84 18 119/82 97 Room Air 09/19/24 20:10 36.5 C 96 H 18 121/79 96 Room Air
[2024-09-20 08:26] VITALS: BP 124/87; PULSE 83; TEMP 98.1; O2SAT 98
[2024-09-20] MEDS ORDERED: bisacodyL 5 MG TABEC PO SCH (20:00)
== END 2024-09-20 12:25 | disposition home or self-care (01) | DRG 807 ==
LOC: OPB 04:09 → 4S1 04:13 → 4E2 08:45